=== PATIENT | male | born 1980 | race Caucasian/White ===

== ENCOUNTER 2017-09-09 13:31 | Emergency (ER) | payer OTHER ==
[~2017-09-09] VITALS: Ht 185.4 cm; Wt 110.9 kg
[~2017-09-09 13:31] MED LIST: NOHOMEMEDS
[2017-09-09 14:16] LABS: HEMATOCRIT 39.5 % (38.0-50.0); HEMOGLOBIN 13.5 G/DL (12.5-16.6); MCH 29.2 PG (29.0-34.0); MCHC 34.2 G/DL (30.0-36.0); MCV 85.5 FL (86-99); PLATELET COUNT 197 K/uL (156-360); RBC DIS.WIDTH-CV 12.6 % (11.8-14.6); RBC DIS.WIDTH-SD 38.8 % (39-53); RED BLOOD COUNT 4.62 M/uL (4.00-5.50)
[2017-09-09 14:41] LABS: CHLORIDE 105 MEQ/L (99-109); POTASSIUM 4.4 MEQ/L (3.7-5.4); SODIUM 138 MEQ/L (136-147)
[2017-09-09 14:47] LABS: CREATININE 0.8 MG/DL (0.6-1.3); GFR ESTIMATE (CALCULATED) > 59 mL/min/ (58.99-99999); GLUCOSE 86 mg/dL (70-99); UREA NITROGEN (BUN) 10 mg/dL (9-23)
[2017-09-09 14:51] LABS: TROP-I INTERPRETATION NEGATIVE; TROPONIN-I < 0.01 ng/mL (0.0-0.30)
[2017-09-09] MEDS ORDERED: DEPAKOTE ER250 MG PO (15:21)
[2017-09-09] MEDS ORDERED: HYDROCHLOROTH12.5 M3 PO (15:22)
[2017-09-09] MEDS ORDERED: AMBIEN10 MG PO (15:23)
[2017-09-09] MEDS ORDERED: BUSPAR15 MG PO (15:25)
[2017-09-09] MEDS ORDERED: TRILEPTAL300 MG PO (15:26)
[2017-09-09] MEDS ORDERED: REMERON15 M2 PO (15:27)
[2017-09-09] MEDS ORDERED: METHADONE 22 MG/1 ML PO (15:29)
[2017-09-09 16:24] VITALS: BP 121/62
== END 2017-09-09 16:26 | disposition home or self-care (01) ==
LOC: EME 13:31
DX: R60.0 Localized edema (principal); R00.2 Palpitations; F41.9 Anxiety disorder, unspecified; F32.9 Major depressive disorder, single episode, unspecified; F31.9 Bipolar disorder, unspecified; F43.10 Post-traumatic stress disorder, unspecified; F40.00 Agoraphobia, unspecified; F17.200 Nicotine dependence, unspecified, uncomplicated
CPT/HCPCS: 71046; 80048; 84484; 85027; 93005; 99281; 99284